=== PATIENT | male | born 1990 | race Caucasian/White ===

== ENCOUNTER 2020-03-05 11:06 | Emergency (ER) | payer OTHER, MEDICARE ==
[~2020-03-05] VITALS: Ht 170.2 cm; Wt 81.7 kg
[~2020-03-05 11:06] MED LIST: CIPROFLOXACIN500 M1 PO; FELBAMATE600 MG PO; FELBATOL600 MG/5 M; FELBATOL600 MG/5 M PO; VENTOLIN HFA INH8 GM; VENTOLIN HFA INH8 GM IH
[2020-03-05] MEDS ORDERED: DOXYCYCLINE 10100 MG PO (12:31)
[2020-03-05 12:36] VITALS: BP 0/0
== END 2020-03-05 12:36 | disposition home or self-care (01) ==
LOC: M.ERS 11:06
DX: S62.390A Other fracture of second metacarpal bone, right hand, initial encounter for closed fracture (principal); S01.112A Laceration without foreign body of left eyelid and periocular area, initial encounter; Z88.5 Allergy status to narcotic agent; W10.8XXA Fall (on) (from) other stairs and steps, initial encounter; Y93.89 Activity, other specified; Y92.89 Other specified places as the place of occurrence of the external cause; Y99.8 Other external cause status

== ENCOUNTER 2020-11-26 10:25 | Emergency (ER) | payer OTHER, MEDICARE ==
[~2020-11-26] VITALS: Ht 165.1 cm; Wt 72.6 kg
[~2020-11-26 10:25] MED LIST changes: +DOXYCYCLINE 10100 MG PO
[2020-11-26 11:41] VITALS: BP 116/80
== END 2020-11-26 11:42 | disposition home or self-care (01) ==
LOC: M.ERS 10:25
DX: S01.01XA Laceration without foreign body of scalp, initial encounter (principal); Z98.890 Other specified postprocedural states; Z79.899 Other long term (current) drug therapy; Z88.5 Allergy status to narcotic agent; W22.8XXA Striking against or struck by other objects, initial encounter; Y93.89 Activity, other specified; Y92.89 Other specified places as the place of occurrence of the external cause; Y99.8 Other external cause status

== ENCOUNTER 2020-12-19 08:54 | Emergency (ER) | payer OTHER, MEDICARE ==
[~2020-12-19] VITALS: Ht 165.1 cm; Wt 71.2 kg
[2020-12-19] MEDS ORDERED: ZONEGRAN100 MG PO (09:02)
[2020-12-19] MEDS ORDERED: TRILEPTAL150 MG PO (09:03)
[2020-12-19 09:15] LABS: NUCLEATED RBCS 0 /100WBC
[2020-12-19 09:17] LABS: HEMATOCRIT 44.2 % (42.0-52.0); HEMOGLOBIN 15.1 gm/dL (14.0-18.0); MCH 32.3 pg (26.0-34.0); MCHC 34.1 g/dL (28.0-37.0); MCV 94.7 fL (80.0-100.0); MPV 6.6 fl. (7.2-11.1); PLATELET COUNT* 255 thou/uL (150-400); RBC 4.67 mil/uL (4.50-6.00); WBC 6.4 thou/uL (4.0-11.0)
[2020-12-19 09:21] LABS: CALCIUM 8.4 mg/dL (8.5-10.1); POTASSIUM 3.5 mmol/L (3.5-5.1)
[2020-12-19 09:26] LABS: ALBUMIN 4.5 g/dL (3.4-5.0); TOTAL BILIRUBIN 0.4 mg/dL (<0.1-1.0)
[2020-12-19 09:55] VITALS: BP 128/74
[2020-12-19 10:27] LABS: ABSOLUTE EOSINOPHILS 0.5 thou/uL (0.0-0.7); ABSOLUTE LYMPHOCYTES 1.5 thou/uL (0.8-5.3); ABSOLUTE MONOCYTES 0.5 thou/uL (0.0-1.2); ABSOLUTE NEUTROPHILS 3.8 thou/uL (1.6-8.1); PLATELET ESTIMATE ADEQUATE
== END 2020-12-19 09:57 | disposition home or self-care (01) ==
LOC: M.ERS 08:54
PROVIDERS: Family Medicine
DX: S00.93XA Contusion of unspecified part of head, initial encounter (principal); S00.81XA Abrasion of other part of head, initial encounter; T88.1XXA Other complications following immunization, not elsewhere classified, initial encounter; Z79.899 Other long term (current) drug therapy; Z88.5 Allergy status to narcotic agent; W19.XXXA Unspecified fall, initial encounter; Y93.89 Activity, other specified; Y92.89 Other specified places as the place of occurrence of the external cause; Y99.8 Other external cause status